=== PATIENT | male | born 1960 | race Caucasian/White ===

== ENCOUNTER 2021-12-13 13:14 | Emergency (ER) | payer MEDICAID ==
[~2021-12-13] VITALS: Ht 167.6 cm; Wt 68.0 kg
--- NOTE | 2021-12-13 13:38 | NUR ---
To ER bed 18, [id number] "Homeless/frustrated about not getting in touch w/SW. Having a breakdown- wants to get off the streets", wants voluntary to psych facility, breathing even and non labored, awaiting md orders
--- NOTE | 2021-12-13 14:02 | NUR ---
URINE COLLECTED AND COVID SWAB DONE AND SENT TO LAB
[2021-12-13 15:18] LABS: BASOPHILS % (AUTO) 0.6 % (0.0-2.0); EOSINOPHILS % (AUTO) 3.3 % (0.0-6.0); HEMATOCRIT 43 % (39-51); HEMOGLOBIN 14.7 g/dL (13.5-17.5); LYMPHOCYTES # (AUTO) 1.4 K/uL (0.8-4.8); LYMPHOCYTES % (AUTO) 37.4 % (20.0-44.0); MEAN CORPUSCULAR HGB CONC 34 g/dl (31.0-36.0); MEAN CORPUSCULAR VOLUME 96 fL (80-96); MONOCYTES # (AUTO) 0.4 K/uL (0.1-1.30); MONOCYTES % (AUTO) 10.7 % (2.0-12.0); NEUTROPHILS # (AUTO) 1.8 K/uL (1.8-8.9); PLATELET COUNT (AUTO) 107 K/uL (150-450); RED BLOOD CELL COUNT(AUTO) 4.53 MIL/uL (4.5-6.0); WHITE BLOOD COUNT (AUTO) 3.7 K/uL (4.3-11.0)
[2021-12-13 15:27] LABS: CALCIUM, SERUM 8.6 mg/dL (8.5-10.1)
[2021-12-13 15:39] LABS: ALBUMIN 3.3 g/dL (3.4-5.0); BILIRUBIN,DIRECT 0.2 mg/dL (0.0-0.2); BILIRUBIN,TOTAL 0.8 mg/dL (0.2-1.0); TOTAL PROTEIN, SERUM 6.8 g/dL (6.4-8.2)
[2021-12-13 15:40] LABS: BILIRUBIN,URINE SMALL (NEGATIVE); COLOR,URINE YELLOW (YELLOW); LEUKOCYTE ESTERASE ,URINE NEGATIVE (NEGATIVE); NITRITE, URINE NEGATIVE (NEGATIVE); PH,URINE 5.5 (5.0-8.0); PROTEIN,URINE NEGATIVE (NEGATIVE); UGLUCOSE NEGATIVE (NEGATIVE)
[2021-12-13 16:05] LABS: BACTERIA,URINE None seen /HPF (None Seen); RBC,URINE 21-50 /HPF (0-2); SQUAMOUS EPITHELIAL CELL,UR 0-2 /HPF (None Seen); WBC,URINE 0-2 /HPF (0-3)
[2021-12-13 16:06] LABS: CALCIUM OXALATE CRYSTALS,UR Many /HPF (None Seen)
--- NOTE | 2021-12-13 17:00 | NUR ---
SS Consult: SS Consult requested for homelessness. The pt. is a 60 -year-old male patient who came in to the ED with complaints "tired of being homeless". Upon SS consult, the pt. is Alert & Oriented x 4 and makes good eye contact. The pt. appears unkempt with depressed mood & affect. Pt. denies SI/HI and denies hallucinations. ZOFIA explored pt.'s living situation. Patient states he is currently experiencing homelessness the past couple of months since arriving to [place]. SW explored pt.'s mental health Hx. and pt. denies any mental illness or taking medication. SW explored pt.'s drug & ETOH use. Pt. denies any drug use or alcohol use. Pt. states he is ambulatory and independent with all his ADL's. SW explored pt.'s support system. Pt. states he has friends and family in [place], [place] and will work on getting back home. Per pt. he has a PATH CM, Fernanda Oscar [phone] who he tried to meet up with at the [place] train station and she never showed. Per pt.'s request ZOFIA left Fernanda a voicemail. Pt. reports he does not receive any financial assistance. Plan: ZOFIA provided a TAP card to pt. and bus directions to [facility], [address] [place] [address] where they help with rehousing clients and are open 9 am -3 pm. ZOFIA provided pt. with homeless resources to fdc, food liang, showers etc. and pt. accepted resources. Pt. signed homeless waiver and it was placed in the pt.'s chart. Year-round shelters: [place] [address] [place], [place] [phone] ; [facility] [address] [place] [address]; [facility] [address] [facility] [address] Hygiene: [facility]: [address] [place] ; [facility] [address] [facility] ; [facility] [place] [address] . Food Resources: [place] [facility] at [facility]- [address] Sisters; Meet Each Need with Dignity ([facility]) [address]; [facility] [address] [facility]; [facility] [address] [place] Mental Health resources provided: [facility] [address] [place], [place] [address] ; [facility] [address] [facility] [address], [place], [place] [phone] ; [facility] [address] [facility] [place], [place] [phone] ; [facility] [address] [place], [place] [address] Healthcare Clinics: [facility] [address] [facility], [address] [place]. [place] ; [facility] [address] [facility] [address] [place] [address]; [facility] [place] [address] [place] [address] 258) [phone] Counseling--Outpatient [facility] [address] [facility], [address] [place], [place] [address] (Specializes in in-depth psychotherapy for emotional distress: anxiety, depression, interpersonal conflicts, life transitions, childhood abuse) [facility] [address] [place], [place] [phone] (Assist with solving problem marital difficulties, separation & divorce, aging parents, & grief, chronic & terminal illness) [facility] [address] [place] [address] (Deal with loss & grief, anxiety, marital difficulties) Homebound/Mental Health Services [address] [facility], [address] [place], [place] [address] (Provide in-home mental services to people who are incapable of leaving their homes) [facility] Elder[facility] Senior Service/Resource Center [address] [place] [address] [facility] [address] [place] [address] PSYCHIATRIC OUTPATIENT SERVICES [facility] Partial Hospitalization and Intensive Outpatient Program (Managed Care and Vasquez Only)[address] [place] [address] [facility] [phone] [facility] Partial Hospitalization and Outpatient [address] [place] [address] [place], [place] [phone] [facility] [place] U[address] [facility]. [address] [place], [place] [phone] [facility] [place] [facility] Partial Hospitalization and Outpatient [id number] [facility], [phone] Substance Abuse resources provided included: [facility] Substance Abuse Self-Helpline ([facility]) ; CRI -HELP [address] Counts Include [address] [facility]. [place] [address] ; [facility] [address] [facility] [address] ; [facility] [address] [place] [address] [facility] [address] ; [facility] [address] [facility] [phone] ; [facility] [address] jul[address] [facility] [address] ; [facility] [address] [facility] [phone] ; [facility] Substance Abuse Helpline([facility])-[facility] ; [facility] ; [facility] [place]; [facility]; [facility] [place]; [facility] Dave Argueta; [facility]; [place] [facility] [place]; [facility], [facility]. [facility] [place]; Alcoholics Anonymous -[facility]; Cyndi ; Marijuana Anonymous -[facility]; Narcotics Anonymous www.[email or web address];
--- NOTE | 2021-12-14 01:41 | NUR ---
STILL AWAITING FOR [facility] TO COME BACK ONLINE FOR PRESSUMPTIVE MEDICAL
--- NOTE | 2021-12-14 05:13 | NUR ---
ACCEPTED AT [facility] DR JUAREZ
--- NOTE | 2021-12-14 05:19 | NUR ---
[facility] ARRANGED FOR 10:00 PICKUP PER SOCAL INTAKE REQUEST.
--- NOTE | 2021-12-14 05:35 | NUR ---
REPORT GIVEN TO BOB
--- NOTE | 2021-12-14 09:40 | NUR ---
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 Discharged to psych facility in stable condition
--- NOTE | 2021-12-14 10:32 | NUR ---
Transfer Information: Transfer to: [place] Transfer By: Dr. Youngblood Accepted by: Dr Malik Transport Team: [facility] [address] Report to: Katherine by STONE Morrissey
[2021-12-14 10:46] VITALS: BP 132/80
== END 2021-12-14 10:49 ==
LOC: ER 13:16
DX: R45.851 Suicidal ideations (principal); Z59.02 Unsheltered homelessness; F15.10 Other stimulant abuse, uncomplicated; Z20.822 Contact with and (suspected) exposure to COVID-19; F32.A Depression, unspecified
CPT/HCPCS: 99285; 85025; 80048; 80076; 81001; 36415; 87426; 80143; 80320; 80307; C9803; G0480